=== PATIENT | male | born 1970 | race Caucasian/White ===

== ENCOUNTER 2018-08-29 09:31 | Emergency (ER) | payer OTHER ==
[~2018-08-29] VITALS: Ht 185.4 cm; Wt 81.6 kg
[2018-08-29 09:37] VITALS: BP 122/81
--- NOTE | 2018-08-29 09:40 | NUR ---
BIB SELF. AAO X4 C/O LEFT UPPER TOOTH THROBBING PAIN 8/10 X 2 WEEKS AGO WORSENING TODAY RADIATING TO LEFT LOWER JAW. PT STATES FEELING CLOGGED ON LEFT EAR. PT TOOK ASPIRIN TODAY AT 0700 WITH MILD RELIEF. PT STATES INABILITY TO CHEW FOOD DUE TO PAIN. PT DENIES FEVER, N/V, DIZZINESS. PT HAS STEADY GAIT. ER TO EVALUATE PT.
[2018-08-29] MEDS ORDERED: KETOROLAC 60 MG/2 ML VIAL IM ONE (10:35)
[2018-08-29] MEDS ORDERED: traMADol 50 MG TAB PO ONE (10:35)
[2018-08-29] MEDS ORDERED: cefTRIAXone 1,000 MG in LIDOCAINE 1% ***ER ONLY *** 2.1 ML IM ONE (10:35)
--- NOTE | 2018-08-29 10:36 | NUR ---
DR BUTLER AT BEDSIDE FOR PT EVALUATION
[2018-08-29] MEDS ORDERED: cefTRIAXone 1,000 MG VIAL ONE (10:55)
[2018-08-29] MEDS ORDERED: LIDOCAINE MPF 1% - 5 mL VIAL 5 ML ONE (10:56)
[2018-08-29] MEDS ORDERED: LIDOCAINE VISCOUS 2% 20 ML UDC PO ONE (12:10)
[2018-08-29 12:16] LABS: BARBITURATE, URINE NEG. ng/ml (NEG <=200); BENZODIAZEPINE, URINE NEG. ng/mL (NEG <=200); CANNABINOID, URINE NEG. ng/mL (NEG <=50); COCAINE, URINE NEG. ng/mL (NEG <=300); OPIATE, URINE NEG. ng/mL (NEG <=2000); PHENCYCLIDINE SCREEN,URINE NEG. ng/mL (NEG <=25)
[2018-08-29 13:31] VITALS: BP 125/84
--- NOTE | 2018-08-29 13:31 | NUR ---
Patient discharged with v/s stable. Written and verbal after care instructions given and explained. Patient alert, oriented and verbalized understanding of instructions. Ambulatory with steady gait. All questions addressed prior to discharge. ID band removed. Patient advised to follow up with PMD. Rx of VOLTARAN AND CLINDAMYCIN given. Patient educated on indication of medication including possible reaction and side effects. Opportunity to ask questions provided and answered.
== END 2018-08-29 13:31 | disposition home or self-care (01) ==
LOC: MED 09:31
DX: K01.1 Impacted teeth (principal); Z90.49 Acquired absence of other specified parts of digestive tract
CPT/HCPCS: 80305; 96372; 99283; J0696; J1885; J2001